=== PATIENT | female | born 1995 | race Caucasian/White ===

== ENCOUNTER 2020-06-08 16:59 | Emergency (ER) | payer SELFPAY ==
[2020-06-08 17:01] VITALS: BP 143/86; PULSE 112; RESP 20; TEMP 36.9; O2SAT 99
--- NOTE | 2020-06-08 17:38 | ED.GENADULT ---
HPI - General Adult General Chief complaint: Ear Stated complaint: Dental/Ear Pain Time Seen by Provider: 06/08/20 17:35 Source: patient Mode of arrival: ambulatory Limitations: no limitations History of Present Illness HPI narrative: pt is here for ear pain and tooth pain on same side, left. Has been happening for several days. States she has never seen a dentist. Does not know if she has any cavities. She does have seasonal allergies. Denies fever or drainage in mouth. Onset (ago): day(s) Severity: moderate Relieving factors: none Exacerbating factors: other (eatting) Treatments prior to arrival: none Related Data Home Medications Medication Instructions Recorded Confirmed dextroamphetamine-amphetamine 10 mg PO DAILY 06/08/20 06/08/20 [Adderall XR] escitalopram oxalate [Lexapro] 10 mg PO DAILY 06/08/20 06/08/20 quetiapine [Seroquel] 25 mg PO BID 06/08/20 06/08/20 Allergies Allergy/AdvReac Type Severity Reaction Status Date / Time No Known Allergies Allergy Verified 06/08/20 17:04 Review of Systems Review of Systems: All systems reviewed & are unremarkable except as noted in HPI and below PMFSH Past Medical History Medical History (Updated 06/08/20 @ 18:54 by Naida De Anda PA-C) Seasonal allergic rhinitis Exam Const: General: no acute distress HENMT: Other: Both eyes appear somewhat puffy. There is no facial swelling. Left TM with mild effusion. No significant caries noted. Pain to sinus tap on the left. Eyes: Conjunctivae: conjunctivae normal Pupils: Equal, round and reactive pupils present Resp: Effort & Inspection: normal respiratory effort Auscultation: clear to auscultation bilaterally Cardio: Rate: regular rate Rhythm: regular rhythm Skin: General skin exam: normal color Psych: Mental Status: mental status grossly normal Course Course Emergency Course: treat for seasonal allergies and sinus congestion. Antihistamine and steroid nasal spray OTC. Vital Signs Vital signs: Vital Signs Temperature 36.9 C 06/08/20 17:01 Pulse Rate 112 H 06/08/20 17:01 Respiratory Rate 20 06/08/20 17:01 Blood Pressure 143/86 H 06/08/20 17:01 Pulse Oximetry 99 06/08/20 17:01 Temperature 36.9 C 06/08/20 17:01 Pulse Rate 112 H 06/08/20 17:01 Respiratory Rate 20 06/08/20 17:01 Blood Pressure 143/86 H 06/08/20 17:01 Pulse Oximetry 99 06/08/20 17:01 Medical Decision Making Vital Signs Vital Signs: Vital Signs Temperature 36.9 C 06/08/20 17:01 Pulse Rate 112 H 06/08/20 17:01 Respiratory Rate 20 06/08/20 17:01 Blood Pressure 143/86 H 06/08/20 17:01 Pulse Oximetry 99 06/08/20 17:01 Temperature 36.9 C 06/08/20 17:01 Pulse Rate 112 H 06/08/20 17:01 Respiratory Rate 20 06/08/20 17:01 Blood Pressure 143/86 H 06/08/20 17:01 Pulse Oximetry 99 06/08/20 17:01 Discharge Plan Discharge Clinical Impression: Sinus congestion, Left otitis media with effusion Patient Disposition: Home, Self-Care Condition: Stable Instructions: Antibiotic Form, Allergic Rhinitis (ED) Additional Instructions: Take a antihistamine/decongestant such as Zyrtec or Claritin. Start an snaw-xpt-prlbojr nasal steroid such as Flonase or Nasacort, use as directed on the package. You may also use saline nasal spray liberally. Follow-up with your primary care physician for further treatment evaluation. Also recommend that you make dental appointment for the first day available date Prescriptions: No Action quetiapine [Seroquel] 25 mg Tablet 25 mg PO BID RF: 0 dextroamphetamine-amphetamine [Adderall XR] 10 mg Capsule,Extended Release 24hr 10 mg PO DAILY RF: 0 escitalopram oxalate [Lexapro] 10 mg Tablet 10 mg PO DAILY RF: 0 Follow-up/Referrals: PHYSICIAN,BULLDOZER MECHANIC [Primary Care Provider] - Time of Disposition: 18:54
== END 2020-06-08 19:10 | disposition home or self-care (01) ==
PROVIDERS: Emergency Provider Emergency Medicine
DX: H65.92 Unspecified nonsuppurative otitis media, left ear (principal); R09.81 Nasal congestion
CPT/HCPCS: 99281

== ENCOUNTER 2021-01-07 12:14 | Emergency (ER) | payer SELFPAY ==
--- NOTE | ~2021-01-07 | CT_ITS ---
EXAMINATION: CT soft tissue neck w con EXAM DATE: 01/07/2021 13:55 INDICATION: Throat pain. Dysphagia, foreign body sensation. Laryngitis. TECHNIQUE: Spiral CT of the neck was performed following intravenous injection of 75 mL Omnipaque 350 . Axial, coronal and sagittal images were reviewed. The dose-length product (DLP) for this examinat ion was 600.26 mGy-cm. The exposure was tailored according to patient size (auto mA exposure control ), and iterative reconstruction (ASIR) was used as additional dose reduction technique. There is no prior study for comparison. FINDINGS: There are several polypoid soft tissue densities in the airway, including one on the epiglo ttis left posterior surface measuring about 8 mm, in the upper trachea posterolaterally measuring 10 mm (narrowing the airway area by about 60%), in the trachea at the T2 level measuring 8 mm, and in tr achea at T3 level measuring 5 mm. These are most likely multiple polyps, most likely benign tumors bu t direct visualization and probably excision is indicated. Epiglottis is otherwise normal in thicknes s, no suspicion of epiglottitis. These findings have been indicated. The thyroid gland is unremarkable. The submandibular and parotid glands are symmetric. There is n o cervical lymphadenopathy. There are no masses identified. The superior mediastinum is unremarka ble. Parapharyngeal and pre-glottic fat planes are preserved. The opacified vasculature is patent . The orbits are unremarkable. Mild bilateral maxillary sinus mucoperiosteal thickening. There is cervical spondylosis. IMPRESSION: At least 4 polypoid masses including one on the epiglottis and one in the upper trachea causing about 60% airway narrowing. Most likely benign histology but bronchoscopy is indicated. Reviewed, dictated and finalized at location B. IMPRESSION: At least 4 polypoid masses including one on the epiglottis and one in the upper trachea causing about 60% airway narrowing. Most likely benign hi stology but bronchoscopy is indicated.
[2021-01-07 12:25] VITALS: BP 159/68; PULSE 92; RESP 18; TEMP 36.7; O2SAT 98
--- NOTE | 2021-01-07 13:00 | ED.URI ---
HPI - URI/Sore Throat General Chief Complaint: Upper Respiratory Infection Stated Complaint: laryngitis x 2 weeks Time Seen by Provider: 01/07/21 12:51 Source: RN notes reviewed History of Present Illness HPI Narrative: Patient presents emergency department from home for laryngitis. Patient states he has had laryngitis for the past 2 weeks. States is associated with difficulty swallowing and states that sometimes with food she feels like she has to force the food down she is able to tolerate own secretions she denies any fevers or chills rhinorrhea ear pain throat pain or chest pain she denies any shortness of breath but does note an intermittent dry cough denies any nausea vomiting Related Data Home Medications Medication Instructions Recorded Confirmed dextroamphetamine-amphetamine 10 mg PO DAILY 06/08/20 06/08/20 [Adderall XR] escitalopram oxalate [Lexapro] 10 mg PO DAILY 06/08/20 06/08/20 quetiapine [Seroquel] 50 mg PO DAILY 06/08/20 06/08/20 lamotrigine 01/07/21 Allergies Allergy/AdvReac Type Severity Reaction Status Date / Time No Known Allergies Allergy Verified 06/08/20 17:04 Review of Systems Review of Systems: Narrative: Gen.: Denies fevers or chills ENT: see HPI Respiratory: Denies shortness of breath reports dry cough CV: Denies chest pain or palpitations GI: Denies abdominal pain nausea, emesis or diarrhea Musculoskeletal: Denies back pain or muscle pain Neuro: Denies numbness, tingling, weakness or focal weakness Skin: Denies rash Except as documented, all other systems reviewed and negative [facility] Past Medical History Medical History Seasonal allergic rhinitis Social History Social History (Updated 01/07/21 @ 13:02 by Venkatesh Davis DO) Smoking status: Never smoker Exam Narrative: Exam Narrative: APPEARANCE: No acute distress, nontoxic, resting in bed EYES: EOMI HEENT: Normocephalic, atraumatic, nares patent oral mucosa moist tonsils 2+ uvula midline hoarse voice airway patent tolerating own secretions no erythema exudate posterior pharynx RESPIRATORY: No respiratory distress Clear to auscultation bilaterally with no rhonchi wheezing or rales. CARDIOVASCULAR: Regular rate and rhythm without murmurs rubs or gallops. ABDOMINAL: Soft, nontender, MUSCULOSKELETAl: Moves all extremities. No clubbing, cyanosis or edema. NEURO: Awake and alert. Following commands, speech normal, no focal deficits SKIN:: Warm, dry. No rashes lesions or abrasions PSYCHIATRIC: Normal affect/mood, Course Course Emergency Course: Called and discussed with Dr. Macario presentation work-up reviewed CT scan. He states that he feels patient may be discharged and he will set her up in the office this week for direct visualization states he will be able to take care of left epiglottis as well as upper tracheal lesions Patient with no shortness of breath in ED Discussed with patient results of workup and diagnosis. Discussed need for follow-up with primary care, proper use of medication, and reasons to return to the emergency department. Patient understands and agrees to current treatment plan Vital Signs Vital signs: Vital Signs Temperature 98.1 F 01/07/21 12:25 Pulse Rate 92 01/07/21 12:25 Respiratory Rate 18 01/07/21 12:25 Blood Pressure 159/68 H 01/07/21 12:25 Pulse Oximetry 98 01/07/21 12:25 Temperature 98.1 F 01/07/21 12:25 Pulse Rate 92 01/07/21 12:25 Respiratory Rate 18 01/07/21 12:25 Blood Pressure 159/68 H 01/07/21 12:25 Pulse Oximetry 98 01/07/21 12:25 MDM - URI/Sore Throat Lab Data Result diagrams: 01/07/21 13:07 01/07/21 13:07 Labs: Lab Results 01/07/21 01/07/21 Range/Units 13:07 13:07 WBC 8.1 (4.5-10.0) K/mm3 RBC 4.94 (4.2-5.4) M/mm3 Hgb 14.3 (12.0-15.0) g/dL Hct 41.5 (37.0-47.0) % MCV 84.0 (80-100) fl MCH 28.9 (26-34) pg MCHC 34.5 (32-36
[2021-01-07 13:16] LABS: Basophils Percent Auto 0.2 % (0.2-1.2); Eosinophils Absolute Auto 0.1 K/mm3 (0-0.3); Eosinophils Percent Auto 1.5 % (0-4.4); Hematocrit 41.5 % (37.0-47.0); Hemoglobin 14.3 g/dL (12.0-15.0); Immature Granulocyte Absolute 0.03 K/mm3 (0.00-0.031); Immature Granulocyte Percent A 0.4 % (0-0.5); Lymphocytes Percent Auto 27.3 % (18.3-44.2); Mean Corpuscular HGB Conc 34.5 g/dl (32-36); Mean Corpuscular Hemoglobin 28.9 pg (26-34); Mean Platelet Volume 10.1 fl (7.4-10.4); Monocytes Absolute Auto 0.7 K/mm3 (0.1-0.6); Monocytes Percent Auto 8.2 % (2.6-8.5); Neutrophils Percent Auto 62.4 % (45.5-73.1); Platelet Count Result 240 k/mm3 (150-375); Red Blood Count 4.94 M/mm3 (4.2-5.4); Red Cell Distribution Width 12.4 % (11.5-14.5); White Blood Count 8.1 K/mm3 (4.5-10.0)
[2021-01-07] MEDS: SODIUM CHLORIDE 0.9% IV 1,000 ML 999 ML IV CONT (13:19)
[2021-01-07 13:26] LABS: Anion Gap 10 mmol/L (8-16); Blood Urea Nitrogen 9 mg/dL (7-17); Calcium 9.4 mg/dL (8.4-10.2); Carbon Dioxide 23 mmol/L (22-30); Chloride 104 mmol/L (98-107); Estimated CRCL calculation 149 ml/min; Estimated Glomerular Filt Rate > 60; Glucose 92 mg/dL (65-110); Potassium 3.9 mmol/L (3.4-5.0); Sodium 137 mmol/L (137-145)
[2021-01-07 15:10] VITALS: BP 141/87; PULSE 79; RESP 18; TEMP 36.6; O2SAT 100
--- NOTE | 2021-01-21 15:55 | PC.NURSE ---
LATE ENTRY This note is being entered to document information to the patient's record. The following information was omitted on [01/07/21], by [ Monique BARRY]. NS stop time is 1415, 1000ml infused.
--- NOTE | 2021-02-08 23:52 | PC.NURSE ---
LATE ENTRY This note is being entered to document information to the patient's record. The following information was omitted on [February 08, 2021], by [Susana Ford RN IVF NS stopped at 1420 January 07, 2021. Infusion complete, 1000 mL total].
== END 2021-01-07 15:20 | disposition home or self-care (01) ==
PROVIDERS: Emergency Provider Emergency Medicine; PCP Nurse Practitioner Family
DX: J39.2 Other diseases of pharynx (principal)
CPT/HCPCS: 36415; 70491; 80048; 81025; 85025; 87081; 87880; 96360; 99284; J7030; Q9967

== ENCOUNTER 2021-02-18 20:22 | Emergency (ER) | payer SELFPAY ==
--- NOTE | ~2021-02-18 | XR_ITS ---
EXAMINATION: XR chest 2V 02/18/2021 20:50 INDICATION: Shortness of breath. Cough. PROCEDURE: 2 view chest COMPARISON: No prior studies for comparison. FINDINGS: The lungs are clear. The cardiomediastinal silhouette is within normal limits. There are no pleural effusions. There is no pneumothorax suspected. IMPRESSION: 1: NO ACUTE CARDIOPULMONARY DISEASE. Reviewed, dictated and finalized at location A.
--- NOTE | 2021-02-18 20:31 | ECG_ITS ---
Measurements Intervals [place] Rate: 89 P: 25 MA: 139 QRS: 14 QRSD: 90 T: 26 QT: 361 QTc: 440 Interpretive Statements SINUS RHYTHM BASELINE ARTIFACT- I, II, AVR, AVL, AVF, V1-V3 NORMAL ECG Electronically Signed On 02-18-2021 20:59:47 CDT by Jorge Jade D.O.
[2021-02-18 20:32] VITALS: BP 157/108; PULSE 90; RESP 18; TEMP 36.3; O2SAT 100
--- NOTE | 2021-02-18 20:37 | PC.NURSE ---
Dr. Pena made aware of high blood pressure in triage.
[2021-02-18 20:49] LABS: Basophils Percent Auto 0.4 % (0.2-1.2); Eosinophils Absolute Auto 0.1 K/mm3 (0-0.3); Eosinophils Percent Auto 1.3 % (0-4.4); Hematocrit 42.9 % (37.0-47.0); Hemoglobin 14.9 g/dL (12.0-15.0); Immature Granulocyte Absolute 0.04 K/mm3 (0.00-0.031); Immature Granulocyte Percent A 0.4 % (0-0.5); Lymphocytes Absolute Auto 2.46 K/mm3 (0.9-3.2); Lymphocytes Percent Auto 27.1 % (18.3-44.2); Mean Corpuscular HGB Conc 34.7 g/dl (32-36); Mean Corpuscular Hemoglobin 29.4 pg (26-34); Mean Corpuscular Volume 84.6 fl (80-100); Mean Platelet Volume 9.8 fl (7.4-10.4); Monocytes Absolute Auto 0.6 K/mm3 (0.1-0.6); Monocytes Percent Auto 6.6 % (2.6-8.5); Neutrophils Absolute Auto 5.8 K/mm3 (1.3-6.7); Neutrophils Percent Auto 64.2 % (45.5-73.1); Platelet Count Result 264 k/mm3 (150-375); Red Blood Count 5.07 M/mm3 (4.2-5.4); Red Cell Distribution Width 11.9 % (11.5-14.5); White Blood Count 9.1 K/mm3 (4.5-10.0)
[2021-02-18 21:00] LABS: Anion Gap 10 mmol/L (8-16); Blood Urea Nitrogen 8 mg/dL (7-17); Calcium 9.6 mg/dL (8.4-10.2); Carbon Dioxide 23 mmol/L (22-30); Chloride 104 mmol/L (98-107); Estimated CRCL calculation 137 ml/min; Estimated Glomerular Filt Rate > 60; Glucose 107 mg/dL (65-110); Potassium 3.7 mmol/L (3.4-5.0); Sodium 137 mmol/L (137-145)
[2021-02-18 23:30] VITALS: BP 140/82; PULSE 98; RESP 18; O2SAT 97
[2021-02-18 23:52] VITALS: BP 142/81; PULSE 99; RESP 18; TEMP 36.4; O2SAT 97
[2021-02-19 00:03] VITALS: PULSE 85
[2021-02-19 00:05] VITALS: O2SAT 97
[2021-02-19 00:44] VITALS: BP 139/65; PULSE 103; RESP 20; O2SAT 97
--- NOTE | 2021-02-19 00:45 | ED.SOB ---
HPI - SOB/Dyspnea General Chief Complaint: Shortness of Breath/Dyspnea Stated Complaint: light headed, sob Time Seen by Provider: 02/18/21 23:30 Source: patient History of Present Illness HPI Narrative: Patient presents with shortness of breath. Scribes sensation of someone is choking her. 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 They are currently discussing potential operative management. Reports her symptoms been present for months night she feels like they are worse so she came in for evaluation. Her symptoms are constant she denies any focal areas of pain such as chest pain. She denies any cough fevers nausea or vomiting. Related Data Home Medications Medication Instructions Recorded Confirmed dextroamphetamine-amphetamine 10 mg PO DAILY 06/08/20 06/08/20 [Adderall XR] escitalopram oxalate [Lexapro] 10 mg PO DAILY 06/08/20 06/08/20 quetiapine [Seroquel] 50 mg PO DAILY 06/08/20 06/08/20 lamotrigine 01/07/21 Allergies Allergy/AdvReac Type Severity Reaction Status Date / Time No Known Allergies Allergy Verified 06/08/20 17:04 Review of Systems Review of Systems: CONSTITUTIONAL: Denies fever, chills, or sweats. EYES: Denies visual changes, redness, or discharge. ENT: Denies rhinorrhea, congestion, sore throat, or otalgia. CARDIOVASCULAR: Denies chest pain, palpitations, or edema. RESPIRATORY: Denies cough GASTROINTESTINAL: Denies abdominal pain, nausea, vomiting, or diarrhea. GENITOURINARY: Denies dysuria or hematuria. SKIN: Denies rash or itching. MUSCULOSKELETAL: Denies back pain, joint pain, or myalgia. NEUROLOGIC: Denies headache, numbness, dizziness, or weakness. PSYCHIATRIC: Denies anxiety or depression. All systems reviewed & are unremarkable except as noted in HPI and below PMFSH Past Medical History Medical History Seasonal allergic rhinitis Social History Social History Smoking status: Never smoker Exam Narrative: GENERAL: Well-appearing, well-nourished, and in no acute distress. HEAD: Normocephalic, atraumatic. EYES: PERRLA and EOMI. ENT: Nares clear, no rhinorrhea or epistaxis. Mucous membranes moist. NECK: Supple. No masses. No JVD CHEST: Clear to auscultation. No respiratory distress. No wheezes rales or rhonchi, no stridor HEART: Regular rate and rhythm. No murmur heard. Normal peripheral pulses. ABDOMEN: Soft, nontender, nondistended, normal active bowel sounds. EXTREMITIES: Normal range of motion. No edema. SKIN: Warm, dry, no rash. NEURO: No focal deficits. Alert and oriented x3. PSYCH: Normal mood and affect. Course Reevaluation(s) Reevaluation #1: Patient is resting comfortably labs reviewed with patient. Patient comfortable with the outpatient plan. Patient instructed to follow-up with ENT for possible operative management or further evaluation Date: 02/19/21 Time: 01:53 Vital Signs Vital signs: Vital Signs Temperature 36.3 C L 02/18/21 20:32 Pulse Rate 90 02/18/21 20:32 Respiratory Rate 18 02/18/21 20:32 Blood Pressure 157/108 H 02/18/21 20:32 Pulse Oximetry 100 02/18/21 20:32 Temperature 36.4 C 02/18/21 23:52 Pulse Rate 100 02/19/21 01:44 Respiratory Rate 19 02/19/21 01:44 Blood Pressure 143/90 H 02/19/21 01:44 Pulse Oximetry 97 02/19/21 01:44 MDM - SOB/Dyspnea MDM Narrative Medical decision making narrative: H&P as above, vss, pt looks clinically well, exam reassuring there is no stridor and oropharynx was clear labs clinically unremarkable to include dimer, img clinically unremarkable, additional labs/img considered, symptomatic relief available as needed, on reevaluation pt continues to looks clinically well. Suspect symptoms related to prior diagnosis of papilloma. Patient directed to reengage with her ENT physicians for reevaluation to discuss further management, dns PE, ACS, pneum
[2021-02-19 01:06] LABS: D Dimer 0.35 ug/mL (<0.48)
[2021-02-19 01:44] VITALS: BP 143/90; PULSE 100; RESP 19; O2SAT 97
== END 2021-02-19 02:01 | disposition home or self-care (01) ==
PROVIDERS: Emergency Medicine; Emergency Provider Emergency Medicine; PCP Nurse Practitioner Family
DX: R06.02 Shortness of breath (principal)
CPT/HCPCS: 36415; 71046; 80048; 85025; 85380; 93005; 99284

== ENCOUNTER 2021-03-19 02:09 | Day surgery (SDC) | payer OTHER, SELFPAY ==
[2021-03-17 09:16] VITALS: BMI 57.2
--- NOTE | 2021-03-18 09:07 | PM.IMHP ---
H&P: HPI History of Present Illness Date/Time: 03/18/21 09:07 Chief Complaint: Stridor, shortness of breath, RRP, airway lesion obstructive Narrative: patient presents for planned surgical procedure. No change in symptoms no change in history. Review of Systems Constitutional: Constitutional: Denies fatigue, Denies fever(s) and Denies lethargy Eyes: Eyes: Denies blurry vision and Denies change in vision ENT: Reports as per HPI Cardiovascular: Cardiovascular: Denies chest pain Respiratory: Respiratory: Denies cough Endocrine: Endocrine: Denies fatigue Hematologic/Lymphatic: Hematologic/Lymphatic: Denies easy bleeding, Denies easy bruising and Denies lymphadenopathy Allergic/Immunologic: Allergic/Immunologic: Denies seasonal rhinorrhea [facility] Past Medical History Medical History Seasonal allergic rhinitis Social History Social History (Updated 03/16/21 @ 15:47 by Lisbeth Diamond MA) Smoking packs per day: 0.5 Smoking cigarettes per day: 10.0 Years smoked: 11 Smoking pack-years: 5.50 Smoking status: Current every day smoker Tobacco type: cigarettes Alcohol intake: never Substance use: current Substance use type: marijuana Other substance usage details: SMOKE Last use: 03/17/21 Living arrangements: with family Spiritual care concerns: No Meds Home Medications and Allergies Home Medications Medication Instructions Recorded Confirmed Type dextroamphetamine-amphetamine 10 mg PO DAILY 06/08/20 03/17/21 History [Adderall XR] escitalopram oxalate [Lexapro] 10 mg PO DAILY 06/08/20 03/17/21 History quetiapine [Seroquel] 25 mg PO BID 06/08/20 03/17/21 History lamotrigine 25 mg PO DAILY 01/07/21 03/17/21 History Allergies Allergy/AdvReac Type Severity Reaction Status Date / Time No Known Allergies Allergy Verified 03/16/21 15:46 Exam Const: General: cooperative, healthy appearing, comfortable, well developed and alert HENMT: Head: normal to inspection, normocephalic and atraumatic Ears: hearing grossly normal bilaterally, external ears normal, TM's normal bilaterally and EAC's normal General nose exam: Normal external nose present, Normal nares present, No nasal polyps present, Normal nasal mucous membranes and turbinates present and Normal septum present Face and sinus: normal facial exam Mouth: Yes Normal oral and palatal mucosa present, Yes lip normal, Yes tongue normal, Yes oropharynx normal and Yes moist mucous membranes Teeth and gingiva: dentition normal and gingiva normal Throat: posterior oropharynx normal, tonsils normal and uvula midline Eyes: General: appearance normal, both eyes and all related structures Periorbital: periorbital findings normal Eyelids: eyelids normal Conjunctivae: conjunctivae normal Sclera: sclerae normal Neck: Neck: normal visual inspection, full ROM and no lymphadenopathy Thyroid: thyroid normal Lymphatic: no lymphadenopathy noted Resp: Effort & Inspection: normal respiratory effort and able to speak in complete sentences Cardio: Jugular venous distension: no JVD Neuro: Cranial nerves: Yes CN's II-XII intact bilaterally Assessment and Plan Assessment and plan (1) Recurrent respiratory papillomatosis: Code(s): Z78.9 - Other specified health status Status: Acute Assessment and Plan: Plan is for the OR for direct laryngoscopy bronchoscopy may need the microscope may need the flexible bronch. Total operative time 20-30 minutes. I would intubate with a small tube upfront we can change to a larger 1 of the bronch intraoperatively. The risks were discussed with the patient including bleeding infection need for trach need for further procedures need for referral to dedicated photographic process attendant. Postoperative bleeding. Return of the symptoms. Patient voiced understanding of these risks and agreed. Will also require the curved and straight laryngeal soccer referee
--- NOTE | 2021-03-18 12:39 | WPDANESEPPF ---
Anes - Initial Pre Proc Eval Procedure: Operation Date: 03/19/21 13:00 Proposed Procedures p Micro Direct Laryngoscopy with Biopsy, Possible Flexible Bronchoscopy with Biopsies - Viral Macario MD Date/Time: 03/18/21 12:39 Surgeon: Viral Macario MD Pre Op Diagnosis: vocal cord polyps Patient Data Age: 25 Gender: F Height: 1.6 m Weight: 146.51 kg Allergies Allergy/AdvReac Type Severity Reaction Status Date / Time No Known Allergies Allergy Verified 03/19/21 11:28 Home Medications Medication Instructions Recorded Confirmed Type dextroamphetamine-amphetamine 10 mg PO DAILY 06/08/20 03/19/21 History [Adderall XR] escitalopram oxalate [Lexapro] 10 mg PO DAILY 06/08/20 03/19/21 History quetiapine [Seroquel] 25 mg PO BID 06/08/20 03/19/21 History lamotrigine 25 mg PO DAILY 01/07/21 03/19/21 History Patient hx anesthesia problems: none Family hx anesthesia problems: none Results Review: All pre-operative results and documents have been reviewed as part of the pre-operative evaluation. [facility] Past Medical History Medical History (Updated 03/18/21 @ 12:40 by Raymond Kelley DO) Anxiety Bipolar disorder Chronic bronchitis Depression History of suicide attempt Schizophrenia Seasonal allergic rhinitis Social History Social History (Updated 03/16/21 @ 15:47 by Lisbeth Diamond MA) Smoking packs per day: 0.5 Smoking cigarettes per day: 10.0 Years smoked: 11 Smoking pack-years: 5.50 Smoking status: Current every day smoker Tobacco type: cigarettes Alcohol intake: never Substance use: current Substance use type: marijuana Other substance usage details: SMOKE Last use: 03/17/21 Living arrangements: with family Spiritual care concerns: No Anes - Eval Final PreProcedure Day of Procedure 03/18/21 12:39 Patient weight: super morbidly obese Heart: regular rate and rhythm Lungs: clear to auscultation and normal air movement Airway: Mallampati scale class 1 Neurological: alert and oriented Last oral intake: >/= 8 hours ASA classification: III Emergent: no Anesthetic plan: proceed Anesthesia type and monitoring: general ETT and standard monitoring Results Review: All pre-operative results and documents have been reviewed as part of the pre-operative evaluation. Informed Consent: The patient's anesthetic plan and its attendant risks and benefits were discussed with the patient/family/POA. Questions were solicited and answers provided to the satisfaction of the patient/family/POA.
[2021-03-19] VITALS (9 sets, daily range): BP systolic 113–143; BP diastolic 72–91; PULSE 80–113; RESP 14–20; TEMP 36.2–37.2; O2SAT 91–100
[2021-03-19] MEDS: LACTATED RINGERS 1,000 ML 30 ML IV CONT ×2 (11:40→14:41)
--- NOTE | 2021-03-19 12:41 | WPDHPUPDATE1 ---
History and Physical Update Update Date/Time: 03/19/21 12:41 History and Physical has been reviewed, including an updated exam of the patient. There are NO changes in the patient's condition. Risks, benefits, and alternatives have been discussed and questions answered. Patient agrees to proceed with procedure.
--- NOTE | 2021-03-19 12:57 | SUR.PREOP ---
1235; dr shanks states no antibx today
[2021-03-19] MEDS: fentaNYL CITRATE INJ (*CRX) 100 MCG/2 ML VIAL 25 MCG IV PUSH ×4 (14:54→15:15)
--- NOTE | 2021-03-19 15:06 | P.OP_ITS ---
Procedure Note - Detailed Date of Procedure 03/19/21 Pre-op Diagnosis Recurrent respiratory/laryngeal papillomas, airway obstruction Post-op Diagnosis same Procedure Performed direct laryngoscopy, debridement of laryngeal and respiratory papillomas, excisional biopsy of papillomas Surgeon Viral Macario MD Geology Technician none Anesthesia general Findings papillomatous lesions on the ventral surface of the epiglottis down into the laryngeal inlet debrided successfully subglottic large papilloma debrided successfully approximately 3 cm below the vocal cords Description of Procedure the patient was correctly identified and consent was verified in the preoperative holding area. The patient was then brought to the operating room and a time-out performed. General anesthesia was induced and endotracheal tube was secured the patient's airway. The patient was then prepped and draped for this for mentioned procedure. Second time-out performed. [employer] laryngoscope placed in the patient's airway after placement of a maxillary tooth mouth guard in the vocal cords were brought into view 1 cc of 4% lidocaine sprayed over the vocal cords. The laryngeal papillomas and epiglottic papillomas were obvious. They were biopsied. A gas meter mechanic blade was utilized to debride the ventral surface of the epiglottis down into the anterior portion of the laryngeal inlet taking great care not to debride the anterior commissure. Bleeding was successfully stopped and hemostasis achieved using intermittent application of Afrin-soaked pledgets. The subglottis was then examined with a very large papilloma several cm across in the posterior tracheal wall approximately 3 cm below the vocal cords. The endotracheal tube was lowered replace more distally and the gas meter mechanic blade utilized to remove this as well. Hemostasis was again achieved using the intermittent application of Afrin-soaked pledgets. Following this there was again examined with no bleeding noted. Remnant blood was suctioned. The endotracheal tube was placed more proximally in a more normal position, a [employer] laryngoscope was removed as well as maxillary tooth mouth guard. Care the patient was turned over to Anesthesiology. I performed all dictated portions of the procedure. Total blood loss approximately 3 cc. There were no immediate complications. Estimated Blood Loss 3 Drains No Packing No Pathology yes Complications No immediate complications Condition stable Disposition PACU
[2021-03-19] MEDS: oxyCODONE HCL (*CRX) 5 MG TAB IR PO (16:11)
--- NOTE | 2021-03-19 16:53 | SUR.PHASEII ---
1650: Vital signs are stable. Patient is getting dressed at this time and waiting for her ride. She is unhooked from the monitors.
== END 2021-03-19 17:01 | disposition home or self-care (01) ==
PROVIDERS: PCP Nurse Practitioner Family; Visit Provider Otolaryngology
PROC: 0CJS8ZZ Inspection of Larynx, Via Natural or Artificial Opening Endoscopic (ICD-10-PCS; CPT 31540; principal; 2021-03-19 13:00)
DX: D14.1 Benign neoplasm of larynx (principal); Z78.9 Other specified health status; F41.9 Anxiety disorder, unspecified; F31.9 Bipolar disorder, unspecified; F20.9 Schizophrenia, unspecified; Z91.51 Personal history of suicidal behavior; F17.210 Nicotine dependence, cigarettes, uncomplicated; F12.90 Cannabis use, unspecified, uncomplicated; E66.01 Morbid (severe) obesity due to excess calories; Z68.43 Body mass index [BMI] 50.0-59.9, adult
CPT/HCPCS: 31540; 88305; A9270; J0171; J0330; J1100; J2250; J2405; J2704; J2710; J3010; J7040; J7120

== ENCOUNTER 2021-10-31 14:38 | Emergency (ER) | payer BC, SELFPAY ==
--- NOTE | ~2021-10-31 | XR_ITS ---
EXAM: XR hand LT min 3V DATE: 10/31/2021 15:22 HISTORY: MOPPING/CAUGHT ON DOOR HANDLE 10/30/21. SWELLING. . COMPARISON: None available. FINDINGS: Normal mineralization. No fracture or dislocation. No lytic or blastic lesion. Joint space s are maintained. No erosion or periosteal change. Soft tissues within normal limits. IMPRESSION: No acute osseous finding in the right hand. Reviewed, dictated and finalized at location K.
[2021-10-31 14:58] VITALS: BP 143/80; PULSE 82; RESP 20; TEMP 36.7; O2SAT 98
[2021-10-31 15:34] VITALS: BP 143/80; PULSE 82; RESP 20; TEMP 36.7; O2SAT 98
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
== END 2021-10-31 16:28 | disposition home or self-care (01) ==
PROVIDERS: Emergency Provider Registered Nurse; PCP Nurse Practitioner Family
DX: S60.222A Contusion of left hand, initial encounter (principal); W22.8XXA Striking against or struck by other objects, initial encounter; F41.9 Anxiety disorder, unspecified; F20.9 Schizophrenia, unspecified; F31.9 Bipolar disorder, unspecified; F17.210 Nicotine dependence, cigarettes, uncomplicated
CPT/HCPCS: 73130; 99213; G0463

== ENCOUNTER 2023-04-13 11:20 | Emergency (ER) | payer SELFPAY ==
[2023-04-13 11:28] VITALS: BP 143/72; PULSE 78; RESP 16; TEMP 36.8; O2SAT 98
--- NOTE | 2023-04-13 12:09 | ED.GENADULT ---
HPI - General Adult General Chief complaint: Extremity Injury, Upper Stated complaint: Left Neck/Shoulder Pain Time Seen by Provider: 04/13/23 12:02 Source: patient and RN notes reviewed Mode of arrival: ambulatory Limitations: no limitations History of Present Illness HPI narrative: Patient presents today complaining of left-sided neck pain radiating to the left upper back and shoulder since last night. States she was holding her baby and trying to move it dog out of the way and felt a sharp pain in her left neck and shoulder area. She currently rates her pain 4/10, which increases with movement of the left shoulder. She has been taking ibuprofen with some mild relief. Last dose was at midnight. Denies numbness or tingling. Related Data Allergies Allergy/AdvReac Type Severity Reaction Status Date / Time No Known Allergies Allergy Verified 04/13/23 11:43 Review of Systems Review of Systems: CONSTITUTIONAL: Denies body aches, fever, chills, or sweats. EYES: Denies visual changes, redness, or discharge. ENT: Denies rhinorrhea, congestion, sore throat, or otalgia. CARDIOVASCULAR: Denies chest pain, palpitations, or edema. RESPIRATORY: Denies cough or dyspnea. GASTROINTESTINAL: Denies abdominal pain, nausea, vomiting, or diarrhea. GENITOURINARY: Denies dysuria or hematuria. SKIN: Denies rash, itching, or wounds. MUSCULOSKELETAL: + left shoulder and neck pain NEUROLOGIC: Denies headache, numbness, tingling, or weakness. PSYCH: Denies depression or anxiety. [facility] Past Medical History Medical History Anxiety Bipolar disorder Chronic bronchitis Depression History of suicide attempt Schizophrenia Seasonal allergic rhinitis Social History Social History Smoking packs per day: 0.5 Smoking cigarettes per day: 10.0 Years smoked: 11 Smoking pack-years: 5.50 Smoking status: Current every day smoker Tobacco type: cigarettes Alcohol intake: never Substance use: current Substance use type: marijuana Other substance usage details: SMOKE Last use: 03/17/21 Living arrangements: with family Spiritual care concerns: No Comments At time of signature, I have reviewed and agree with nursing past medical, surgical, social and family history unless otherwise noted. Please see nursing chart for further information. There is no relevant family history pertinent to the presenting complaint Exam Narrative: GENERAL: Well-appearing, well-nourished, and in no acute distress. HEAD: Normocephalic, atraumatic. EYES: EOMI. No redness or drainage. Conjunctivae normal. ENT: Mucous membranes pink and moist. NECK: AROM of the neck limited due to pain. Supple. No lymphadenopathy. Tenderness to the left cervical paraspinal muscles that extends to the trapezius. CHEST: No respiratory distress. MUSCULOSKELETAL: No bony tenderness of the spine. EXTREMITIES: Tenderness to the left trapezius. AROM of the left shoulder limited due to pain. Distal sensation intact. Capillary refill normal. Radial pulse normal. SKIN: Warm, dry, no rash. Capillary refill normal. Normal skin turgor. NEURO: No focal deficits. Alert and oriented x3. Gait steady. PSYCH: Normal affect. No signs of depression or anxiety. Course Course Level of Care: Express Care Visit Vital Signs Vital signs: Vital Signs Temperature 98.3 F 04/13/23 11:28 Pulse Rate 78 04/13/23 11:28 Respiratory Rate 16 04/13/23 11:28 Blood Pressure 143/72 H 04/13/23 11:28 Pulse Oximetry 98 04/13/23 11:28 Oxygen Delivery Room Air 04/13/23 11:28 Temperature 98.3 F 04/13/23 11:28 Pulse Rate 78 04/13/23 11:28 Respiratory Rate 16 04/13/23 11:28 Blood Pressure 143/72 H 04/13/23 11:28 Pulse Oximetry 98 04/13/23 11:28 Oxygen Delivery Room Air 04/13/23 11:28 Reviewed Medical Decision Making MDM
== END 2023-04-13 12:15 | disposition home or self-care (01) ==
PROVIDERS: Emergency Provider Nurse Practitioner; PCP Nurse Practitioner Family
DX: S46.812A Strain of other muscles, fascia and tendons at shoulder and upper arm level, left arm, initial encounter (principal); X50.0XXA Overexertion from strenuous movement or load, initial encounter
CPT/HCPCS: 99213; G0463

== ENCOUNTER 2023-06-03 09:13 | Emergency (ER) | payer MEDICAID, SELFPAY ==
[2023-06-03 09:19] VITALS: BP 139/75; PULSE 101; RESP 18; TEMP 36.7; O2SAT 96
--- NOTE | 2023-06-03 09:26 | ED.GENADULT ---
HPI - General Adult General Chief complaint: Upper Respiratory Infection Stated complaint: Fever/No Smell/Cough/Headache Time Seen by Provider: 06/03/23 09:27 Source: patient, RN notes reviewed and old records reviewed Mode of arrival: ambulatory Limitations: no limitations History of Present Illness HPI narrative: 28-year-old female presents to [facility] with complaints of cough, congestion, sore throat, myalgia, diarrhea for 2-3 days. Patient taking [id number] medications with no relief. Patient denies weakness, dizziness, chest pain, shortness of breath. MD complaint: Flu-like symptoms Onset (ago): day(s) (3) Related Data Allergies Allergy/AdvReac Type Severity Reaction Status Date / Time No Known Allergies Allergy Verified 04/13/23 11:43 Review of Systems Constitutional: Constitutional: Reports no additional constitutional complaints, Reports body ache(s), Denies chills, Reports fatigue, Denies fever(s) and Denies headache(s) Eyes: Eyes: Reports no additional eye complaints and Denies blurry vision ENT: Reports system reviewed and no additional complaints, except as documented, Denies vertigo, Denies dizziness, Denies ear discharge, Denies otalgia, Denies facial pain, Denies headache(s), Reports nasal congestion, Denies nasal discharge, Denies sinus pain, Denies sinus pressure and Reports sore throat Cardiovascular: Cardiovascular: Reports no additional cardiovascular complaints, Denies chest pain, Denies chest pain at rest, Denies rapid heart rate and Denies dyspnea Respiratory: Respiratory: Reports no additional respiratory complaints, Denies chest congestion, Reports cough, Denies pain on inspiration, Denies pain with cough and Denies dyspnea Gastrointestinal: Gastrointestinal: Denies abdominal pain, Reports diarrhea, Denies nausea and Denies vomiting Integumentary/Breasts: Skin/Breast: Denies rash Neurologic: Reports system reviewed and no additional complaints, except as documented, Denies vertigo, Denies dizziness and Denies headache(s) Endocrine: Endocrine: Denies fatigue [facility] Past Medical History Medical History Anxiety Bipolar disorder Chronic bronchitis Depression History of suicide attempt Schizophrenia Seasonal allergic rhinitis Social History Social History Smoking packs per day: 0.5 Smoking cigarettes per day: 10.0 Years smoked: 11 Smoking pack-years: 5.50 Smoking status: Current every day smoker Tobacco type: cigarettes Alcohol intake: never Substance use: current Substance use type: marijuana Other substance usage details: SMOKE Last use: 03/17/21 Living arrangements: with family Spiritual care concerns: No Comments At the time of my signature, I reviewed and agree with the nursing past medical, surgical, social, and family history. There is no relevant family history pertinent to the patient complaint. Exam Const: General: cooperative, no acute distress, ill appearing acutely and well nourished Nutritional Appearance: well nourished Orientation/consciousness: patient oriented x3 Limitations: no limitations HENMT: Head: normal to inspection and normocephalic Ears: external ears normal, TM's normal bilaterally, mastoids normal and Abnormal EAC present Face/Nose/Sinus: normal facial exam Face and sinus: normal facial exam Mouth: Yes Normal oral and palatal mucosa present, Yes oropharynx normal and Yes moist mucous membranes Throat: tonsils normal, uvula midline, posterior oropharynx abnormal erythema and no uvular edema Eyes: General: appearance normal, both eyes and all related structures Sclera: sclerae normal Pupils: Equal, round and reactive pupils present Resp: Effort & Inspection: normal respiratory effort, able to speak in complete sentences, no audible wheezes, no cough, no respiratory distress and no retractions Auscultation: michelle
== END 2023-06-03 10:02 | disposition home or self-care (01) ==
PROVIDERS: Emergency Provider Registered Nurse; PCP Nurse Practitioner Family
DX: B34.9 Viral infection, unspecified (principal); F17.210 Nicotine dependence, cigarettes, uncomplicated; Z20.822 Contact with and (suspected) exposure to COVID-19
CPT/HCPCS: 87081; 87426; 87804; 87880; 99213; C9803; G0463

== ENCOUNTER 2023-06-20 14:53 | Emergency (ER) | payer BC, MEDICAID, SELFPAY ==
[2023-06-20 14:56] VITALS: BP 138/78; PULSE 84; RESP 20; TEMP 36.9; O2SAT 100
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
== END 2023-06-20 15:20 | disposition home or self-care (01) ==
PROVIDERS: Emergency Provider Nurse Practitioner Family; PCP Nurse Practitioner Family
DX: T23.261A Burn of second degree of back of right hand, initial encounter (principal); X13.1XXA Other contact with steam and other hot vapors, initial encounter; F17.210 Nicotine dependence, cigarettes, uncomplicated
CPT/HCPCS: 99213; G0463

== ENCOUNTER 2023-11-01 11:17 | Emergency (ER) | payer OTHER, SELFPAY ==
--- NOTE | ~2023-11-01 | XR_ITS ---
XR hand RT min 3V DATE: 11/01/2023 12:07 INDICATION: Distal right second and third metacarpal pain TECHNIQUE: 3 views COMPARISON: None FINDINGS: No fracture, dislocation, periosteal reaction or bone destruction, erosive change or chondr ocalcinosis. Joint spaces are preserved. IMPRESSION: Negative Reviewed, dictated and finalized at location B. IMPRESSION: Negative
[2023-11-01 11:26] VITALS: BP 124/62; PULSE 111; RESP 16; TEMP 37.2; O2SAT 98
--- NOTE | 2023-11-01 11:54 | ED.EXTPRO ---
HPI - Extremity Problem General Chief complaint: Extremity Problem,Nontraumatic Stated complaint: Right Hand Pain/Swelling Source: patient Mode of arrival: ambulatory Limitations: no limitations History of Present Illness HPI Narrative: Patient presents for evaluation of right hand pain. She indicates symptoms started yesterday without any identified precipitating cause or injury. She has noted some redness, bruising and burning in the affected area thereafter. She rates her symptoms as 9/10 in severity. She took some Tylenol for her symptoms. She is right hand dominant. Related Data Allergies Allergy/AdvReac Type Severity Reaction Status Date / Time No Known Allergies Allergy Verified 06/20/23 15:06 Review of Systems Review of Systems: CONSTITUTIONAL: Denies fever, chills, or sweats. EYES: Denies visual changes, redness, or discharge. ENT: Denies rhinorrhea, congestion, sore throat, or otalgia. CARDIOVASCULAR: Denies chest pain, palpitations, or edema. RESPIRATORY: Denies cough or dyspnea. GASTROINTESTINAL: Denies abdominal pain, nausea, vomiting, or diarrhea. GENITOURINARY: Denies dysuria or hematuria. SKIN: Reports redness, bruising and burning to right hand. MUSCULOSKELETAL: Reports right hand pain. Denies other joint pain. NEUROLOGIC: Denies headache, numbness, dizziness, or weakness. PSYCHIATRIC: Denies anxiety or depression. [facility] Past Medical History Medical History Anxiety Bipolar disorder Chronic bronchitis Depression History of suicide attempt Schizophrenia Seasonal allergic rhinitis Surgical History Surgical History History of Family History Family History Mother Family history non-contributory Social History Social History (Updated 11/01/23 @ 11:56 by ANJU Whaley, ) Smoking packs per day: 0.5 Smoking cigarettes per day: 10.0 Years smoked: 11 Smoking pack-years: 5.50 Smoking status: Former smoker Tobacco type: cigarettes Alcohol intake: never Substance use: current Substance use type: marijuana Other substance usage details: SMOKE Last use: 03/17/21 Living arrangements: with family Spiritual care concerns: No Exam Narrative: GENERAL: Well-appearing, well-nourished, and in no acute distress. HEAD: Normocephalic, atraumatic. EYES: PERRLA and EOMI. ENT: Nares clear, no rhinorrhea or epistaxis. Mucous membranes moist. Oropharynx without tonsillar hypertrophy exudate or other lesions. Bilateral TMs pearly horvath nonbulging NECK: Supple. No adenopathy or masses. No carotid bruits or JVD CHEST: Clear to auscultation. No respiratory distress. No wheezes rales or rhonchi HEART: Regular rate and rhythm. No murmur heard. Normal peripheral pulses. ABDOMEN: Soft, nontender, nondistended, normal active bowel sounds. EXTREMITIES: Normal range of motion. No edema. SKIN: There is a 1.8 cm area of mild erythema noted to palmar aspect of right hand NEURO: No focal deficits. Alert and oriented x3. PSYCH: Normal mood and affect. Course Course Emergency Course: This is a 28-year-old female who presented for evaluation of a burning sensation in her right hand. There is a very mild amount erythema present. She requested an x-ray. Discussed risks versus benefits during . She was agreeable to move forward and accepted the risks associated with that. No evidence of fracture. Her symptoms look to be allergic in nature, may be as result of an insect bite. Application of compresses may help. Advise she speak with her OBGYN regarding medications a would be safe during her . She should follow-up with her OBGYN go to the emergency department for worsening symptoms. Patient in agreement with care Level of Care: Express Care Visit Vital Signs Vital signs
== END 2023-11-01 12:29 | disposition home or self-care (01) ==
PROVIDERS: Emergency Provider Nurse Practitioner; PCP Nurse Practitioner Family
DX: L30.9 Dermatitis, unspecified (principal); Z87.891 Personal history of nicotine dependence
CPT/HCPCS: 73130; 99213; G0463

== ENCOUNTER 2023-11-22 17:25 | Emergency (ER) | payer OTHER, SELFPAY ==
[2023-11-22 17:32] VITALS: BP 149/75; PULSE 110; RESP 20; TEMP 37.1; O2SAT 98
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
== END 2023-11-22 18:50 | disposition short-term general hospital (02) ==
PROVIDERS: Emergency Provider Nurse Practitioner Family; PCP Nurse Practitioner Family
DX: O99.712 Diseases of the skin and subcutaneous tissue complicating pregnancy, second trimester (principal); Z3A.20 20 weeks gestation of pregnancy; L03.115 Cellulitis of right lower limb; L98.9 Disorder of the skin and subcutaneous tissue, unspecified; Z87.891 Personal history of nicotine dependence
CPT/HCPCS: 99212; G0463